=== PATIENT | female | born 1960 | race Caucasian/White ===

== ENCOUNTER 2018-04-13 23:15 | Emergency (ER) | payer MEDICARE ==
[2018-04-13 23:31] VITALS: BP 154/92; PULSE 90; RESP 20; TEMP 97.9; O2SAT 96
[2018-04-13] MEDS ORDERED: Tetanus/Diphtheria Toxoids 0.5 ml Syringe IM ONE (23:39)
[2018-04-14] MEDS ORDERED: Tetanus/Diphtheria Toxoids 0.5 ml Syringe IM ONE (00:01)
[2018-04-14] MEDS ORDERED: Lidocaine Hydrochloride 5 ML INJ ONE (00:18)
--- NOTE | 2018-04-14 00:26 | C.PDOC ---
History Of Present Illness 58 year old female presents to the ER after sustaining a laceration to the left hand while peeling a coconut. Denies weakness or numbness. Right hand dominant. Time Seen by Provider: 04/13/18 23:24 Chief Complaint (Nursing): Abnormal Skin Integrity History Per: Patient History/Exam Limitations: no limitations Onset/Duration Of Symptoms: Hrs Current Symptoms Are (Timing): Still Present Location Of Injury: Left: Hand Quality Of Symptoms: Other (Laceration) Recent travel outside of the [place]: No Past Medical History Reviewed: Historical Data, Nursing Documentation, Vital Signs Vital Signs: Last Vital Signs Temp 97.9 F 04/13/18 23:28 Pulse 90 04/13/18 23:28 Resp 20 04/14/18 00:37 BP 154/92 H 04/13/18 23:28 Pulse Ox 96 04/14/18 01:23 Surgical History: No Surg Hx Family History: States: Unknown Family Hx - Social History Hx Alcohol Use: No Hx Substance Use: No Review Of Systems Musculoskeletal: Positive for: Hand Pain Skin: Positive for: Other (Laceration) Neurological: Negative for: Weakness, Numbness Physical Exam - Physical Exam Appears: Non-toxic, No Acute Distress Skin: Warm, Dry Head: Atraumatic, Normacephalic Eye(s): bilateral: Normal Inspection, EOMI Nose: Normal Oral Mucosa: Moist Chest: Symmetrical Respiratory: No Accessory Muscle Use Extremity: Normal ROM (x4), Capillary Refill (<2 seconds), Swelling, Other (2cm linear laceration to palmar aspect of left hand) Pulses: Left Radial: Normal, Right Radial: Normal Neurological/Psych: Oriented x3, Normal Speech, Normal Motor (5/5 against resistance), Normal Sensation ED Course And Treatment O2 Sat by Pulse Oximetry: 96 (room air) Pulse Ox Interpretation: Normal - Other Rad Left hand x-ray X-Ray: Interpreted by Me, Viewed By Me Interpretation: No acute fractures or dislocations Progress Note: Left hand x-ray ordered, results were negative. Tetanus vaccination and tylenol administered. Patient tolerated laceration repair without any difficulty, will discharge home with instructions to follow up for suture removal. Laceration - Laceration Repair Left hand Wound Length (In cm): 2 Description Of Wound: Linear Wound Cleansed With: Betadine, Sterile Saline Anesthesia: Lidocaine 1% Wound Examination: Irrigated With Saline, No FB With Wound Exploration, No Tendon Injury With Wound Exploration Wound Closure: Suture (x2) Suture Technique And Material Used: Nylon (5-0) Wound Complexity: Simple Disposition - Disposition Referrals: Leelee Lugo MD [Staff Provider] - Disposition: HOME/ ROUTINE Disposition Time: 00:26 Condition: STABLE Additional Instructions: Wound check in 2 days. Suture removal in 7-10 days. Watch for signs of infection including redness, swelling and discharge. 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 - Scribe Statement The provider has reviewed the documentation as recorded by the Scribe Jayro Neely All medical record entries made by the Scribe were at my direction and personally dictated by me. I have reviewed the chart and agree that the record accurately reflects my personal performance of the history, physical exam, medical decision making, and the department course for this patient. I have also personally directed, reviewed, and agree with the discharge instructions and disposition.
[2018-04-14] MEDS ORDERED: Bacitracin 500 Units/gm Oint Foilpak UD ONE (00:29)
--- NOTE | 2018-04-14 08:45 | RAD ---
PROCEDURE: Left Hand Radiographs. HISTORY: trauma COMPARISON: None. 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 Subcutaneous panniculus is prominent. There is greater soft tissue density and inferred swelling between the 1st and 2nd metacarpals. No radiopaque foreign body here (or elsewhere on this study) is appreciated. . OTHER FINDINGS: None. IMPRESSION: No fracture or radiopaque foreign body. Soft tissue findings compatible with focal trauma. 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
== END 2018-04-14 00:37 | disposition home or self-care (01) ==
LOC: C.ER 23:15
DX: S61.412A Laceration without foreign body of left hand, initial encounter (principal); Z23 Encounter for immunization; W45.8XXA Other foreign body or object entering through skin, initial encounter

== ENCOUNTER 2018-12-19 11:08 | Outpatient (CLI) | payer MEDICARE | END 2018-12-19 11:09 | disposition home or self-care (01) | LOC: C.RADIC 11:08 | DX: M25.572 Pain in left ankle and joints of left foot (principal); M19.049 Primary osteoarthritis, unspecified hand ==